=== PATIENT | female | born 1960 | race Caucasian/White ===

== ENCOUNTER 2016-12-13 05:55 | Day surgery (SDC) | payer MEDICARE ==
[2016-12-12 14:01] LABS: BASOPHILS 0.2 % (0-2); EOSINOPHILS 2.9 % (0-7); HEMOGLOBIN 12.7 g/dL (12-16); IMMATURE GRANULOCYTES 0.5 % (0-5); LYMPHOCYTES 29.3 % (15-50); MCH 27.7 pg (26.0-34.0); MCHC 32.6 g/dL (31.0-37.0); MEAN PLATELET VOLUME 9.5 fL (7.4-10.4); MONOCYTES 6.9 % (2-11); NEUTROPHILS 60.2 % (40-80); PLATELET COUNT 251 10x3/uL (130-400); RBC 4.59 10x6/uL (4.00-5.40); RDW 15.2 % (11.5-14.5); WBC 8.5 10x3/uL (4.8-10.8)
[2016-12-12 14:32] LABS: APTT 26.5 SECONDS (22.8-39.4); INR 0.96 (0.85-1.17); PROTIME 12.6 SECONDS (11.6-15.0)
[2016-12-12 14:56] LABS: ANION GAP 15.1 mmol/L (8-16); CALCIUM 9.2 mg/dL (8.5-10.1); CARBON DIOXIDE 25.8 mmol/L (21.0-32.0); POTASSIUM - SERUM 3.9 mmol/L (3.5-5.1)
[~2016-12-13] VITALS: Ht 167.6 cm; Wt 95.3 kg
--- NOTE | ~2016-12-13 | OP ---
PATIENT NAME: JAMILA FREIRE MEDICAL RECORD: [id number] :60 LOCATION:D.OPS ADMISSION DATE: SURGEON: WOODY DELUCA DO DATE OF OPERATION: 12/13/2016 SURGEON: Woody Deluca DO. PROCEDURE: Right knee arthroscopy with partial medial meniscectomy, partial lateral meniscectomy and patellar chondroplasty. PREOPERATIVE DIAGNOSIS: Lateral meniscal tear. 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 INDICATIONS: Ms. Freire is a 56-year-old female who has had right knee pain for some time, has been putting it off due to family situation. She said she has had an MRI, which demonstrated an intrasubstance tear of the lateral meniscus. This was months ago and she is tired of dealing with the pain and so she elected to undergo partial meniscectomy and right knee arthroscopy. She was informed of the risks and benefits in the office and consented to proceed forward with the procedure. DESCRIPTION OF PROCEDURE: Ms. Freire was taken to the operative suite, placed in supine position, given general anesthetic and after she was moved over the table. Timeout was performed. There was in agreement of the right knee was the correct knee ____ correct procedure and the correct patient. She was given 2 grams Ancef prior to the ____. She was then prepped and draped in sterile fashion and 0.5% Marcaine with 1% epinephrine was injected to the potential portal sites in the medial and lateral side of the patellar tendon, totaling 7 mL. Both of a total of 7 mL. The lateral portal was then established with an 11-blade scalpel and the arthroscope trocar device was placed in the knee and the camera was then placed in, first in the suprapatellar pouch, there was some chondromalacia on the patella and then along the lateral gutter was viewed. Denies any loose bodies in the lateral joint that was viewed and the popliteal tendon was intact. The scope was then taken ____ needle into the medial gutter. Again, no loose bodies were reviewed there and then down into the medial joint. Upon viewing the medial joint, chondromalacia of the medial femoral condyle was seen as well as a meniscal tear in the junction of the posterior third and middle third of the meniscus. The medial portal was then established with an 11-blade scalpel and the partial meniscectomy was done on that parrot beak type tear on the medial meniscus and ____ using a biters to a stable position. The medial femoral condyle was addressed as well. Any of the loose cartilage was removed using a shaver back to a stable position. The arthroscope was then swung into the middle of the knee and the ACL was viewed. A probe was used to probe the ACL to ensure that it was intact and stable and it was. Then the probe was placed in the posterior lateral knee and the leg was ____ and the camera went to the lateral compartment of the knee. Upon entering that, viewing the somewhat extensive intrasubstance tear, it was horizontal in the middle third of the lateral meniscus. The rest of lateral meniscus was probed and seen to be stable. A straight biter was then used to bite that back to a stable meniscus as well as shaver. Once that was done, the condyle lateral compartment appeared to be in good shape. No chondromalacia viewed. The scope was then placed backup under the patella and the chondromalacia was noted and the shaver OPERATIVE REPORT [id number] LAUREN FREIREA G was placed and then abrasion chondroplasty was done at that time to remove the loose cartilage underneath the patella. Once this was done, the scope was removed and the patient's wounds were closed using 4-0 Prolene in a [id number] fashion and the skin Adaptic, 4 x 4s, ABD, Webril, Frantz wrap were then placed over the knee and a knee high KADEN stocking was placed on the patient. She is awakened in the operating room in stable condition. Estimated blood loss was minimal and she was taken to PACU in good condition. TRANSINT:[id number] Voice Confirmation ID: [id number] DOCUMENT ID: [id number] WOODY DELUCA DO CC: [id number] DICTATION DATE: 12/13/16 1001 HEATING UNIT INSTALLER: 12/13/16 1206 [facility] 12/13/16 [facility] [address] [place] [address]
[~2016-12-13 05:55] MED LIST: ARTHROTEC EC 71 EACH PO; BUSPIRONE HCL30 MG PO; FERROUS SULFAT325 MG PO; FISH OIL 1,0001 CA1 PO; MULTI-DAY VITAM1 TAB PO; NEURONTIN600 MG PO; PROTONIX40 MG PO; PROZAC20 MG PO; VITAMIN B COMPL1 TAB PO; ZANAFLEX4 MG PO
[2016-12-13 07:29] VITALS: BP 112/72; Ht 167.6 cm; Wt 95.3 kg
[2016-12-13] MEDS ORDERED: VALIUM5 MG PO (08:04)
[2016-12-13] MEDS ORDERED: PERCOCET 5-3251 TAB PO (09:51)
--- NOTE | 2016-12-13 11:41 | NUR ---
1140 DISCHARGE INSTRUCTIONS COMPLETE. PRESCRIPTION FOR PERCOCET GIVEN. NO QUESTIONS OR CONCERNS AT THIS TIME. ESCORTED OUT BY VOLUNTEER.
== END 2016-12-13 11:40 | disposition home or self-care (01) ==
LOC: D.OPS 05:55 → D.PAN 08:15 → D.OPS 08:30
PROVIDERS: Anesthesiology
DX: S83.281A Other tear of lateral meniscus, current injury, right knee, initial encounter (principal); G47.30 Sleep apnea, unspecified; K21.9 Gastro-esophageal reflux disease without esophagitis; E11.9 Type 2 diabetes mellitus without complications; S83.241A Other tear of medial meniscus, current injury, right knee, initial encounter; M22.41 Chondromalacia patellae, right knee; Z01.812 Encounter for preprocedural laboratory examination

== ENCOUNTER → 2017-10-28 11:39 | Outpatient (CLI) | payer MEDICARE ==
[2016-12-13 07:29] VITALS: BMI 33.9
[~2017-10-28 11:39] MED LIST changes: +PERCOCET 5-3251 TAB PO; +VALIUM5 MG PO
== END | disposition home or self-care (01) ==
LOC: D.MRI 11:39
DX: M25.512 Pain in left shoulder (principal)